=== PATIENT | female | born 1985 | race Caucasian/White ===

== ENCOUNTER 2016-11-17 18:20 | Inpatient (IN) | payer MEDICAID ==
[~2016-11-17] VITALS: Ht 162.6 cm; Wt 63.5 kg
[2016-11-17] VITALS (9 sets, daily range): BP systolic 117–149; RESP 18–20; TEMP 98.2; Ht 162.6 cm; Wt 63.5 kg
[2016-11-17] MEDS ORDERED: OXYTOCIN 15 UNITS/250 ML NS 500 ML IV ONE (18:28)
[2016-11-17] MEDS ORDERED: LACT RINGERS 1,000 ML IV SCH (18:35)
[2016-11-17] MEDS ORDERED: FAMOTIDINE 20 MG TAB PO PRN (18:35)
[2016-11-17] MEDS ORDERED: ONDANSETRON 4 MG VIAL IV PRN (18:35)
[2016-11-17] MEDS ORDERED: ACETAMINOPHEN 325 MG TAB PO PRN (18:35)
[2016-11-17] MEDS ORDERED: LIDOCAINE 1% 30 ML PF INFILTRATE ONE (18:35)
[2016-11-17] MEDS ORDERED: ALU/MAG/SIM 30 ML UDC PO PRN (18:35)
[2016-11-17] MEDS ORDERED: TERBUTALINE 1 MG/ML VIAL SUBQ PRN (18:35)
[2016-11-17] MEDS ORDERED: PROMETHAZINE 25 MG/ML VIAL IV PRN (18:35)
[2016-11-17] MEDS ORDERED: MORPHINE 5 MG/1 ML VIAL IV ONE (19:00)
[2016-11-17] MEDS: OXYTOCIN 15 UNITS/250 ML NS 250 ML IV SCH ×2 (19:03→20:00)
[2016-11-17] MEDS ORDERED: MISOPROSTOL 100 MCG TAB ONE (21:03)
[2016-11-17] MEDS ORDERED: DERMOPLAST SPRAY TOPICAL PRN (22:00)
[2016-11-17] MEDS ORDERED: TDaP 0.5 ML VIAL IM.VACC ONE (22:00)
[2016-11-17] MEDS ORDERED: ASTRINGENT MED PADS 40'S TOPICAL PRN (22:00)
[2016-11-17] MEDS ORDERED: MAG HYDROX 30 ML UDC PO PRN (22:00)
[2016-11-17] MEDS: Ibuprofen 600 MG TAB PO SCH (23:54)
[2016-11-18 02:00] VITALS: BP_SYST 128; RESP 18; TEMP 98.4
[2016-11-18] MEDS: Ibuprofen 600 MG TAB PO SCH ×4 (05:35→23:06)
[2016-11-18 05:46] VITALS: BP_SYST 121; RESP 18; TEMP 98.3
[2016-11-18 09:14] VITALS: BP_SYST 114; RESP 16; TEMP 98.2
[2016-11-18] MEDS: SALINE FLUSH 10 ML FLUSH SCH ×2 (10:06→20:00)
[2016-11-18 14:16] VITALS: BP_SYST 113; RESP 16; TEMP 98.1
[2016-11-18 18:09] VITALS: BP_SYST 121; RESP 20; TEMP 97.5
[2016-11-19] MEDS: Ibuprofen 600 MG TAB PO SCH ×2 (05:18→13:19)
[2016-11-19 05:27] VITALS: BP_SYST 132; RESP 20; TEMP 97.4
[2016-11-19 09:15] VITALS: BP_SYST 115; RESP 18; TEMP 97.5
[2016-11-19 13:24] VITALS: BP_SYST 115; RESP 18; TEMP 97.5
== END 2016-11-19 14:50 | disposition home or self-care (01) | DRG 775 ==
LOC: LDOP 18:20 → LD 18:21 → OB 11-18 14:39
PROVIDERS: ADMIT Obstetrics & Gynecology; ATTEND Obstetrics & Gynecology
PROC: 10E0XZZ Delivery of Products of Conception, External Approach (ICD-10-PCS; principal; 2016-11-17)
CPT/HCPCS: 80053; 82803; 85025; 86701; 86762; 86780; 86803; 86850; 86900; 86901; 87340; 88307